=== PATIENT | male | born 1980 | race Caucasian/White ===

== ENCOUNTER 2018-02-18 09:32 | Emergency (ER) | payer SELFPAY ==
--- NOTE | 2018-02-18 09:45 | CPEKG ---
Heart Rate: 58 RR Interval: 1034 P-R Interval: 144 QRSD Interval: 94 QT Interval: 408 QTC Interval: 401 P Concrete: 34 QRS Concrete: 19 T Wave Concrete: 39 EKG Severity - NORMAL ECG - EKG Impression: SINUS RHYTHM Electronically Signed By: Kevin Almaguer 18-Feb-2018 10:45:46
[2018-02-18 09:51] VITALS: RESP 18; TEMP 98
[2018-02-18] MEDS ORDERED: IBUPROFEN 600 MG TAB PO ONE (09:54)
--- NOTE | 2018-02-18 10:17 | EDPHY ---
H & P Stated Complaint: c/o substernal Chest pain inc. over last month Time Seen by Provider: 02/18/18 09:34 HPI/ROS: Chief Complaint: Chest pain HPI: 37-year-old male states that he has been having left-sided chest pain for years but has been particularly worse over the last couple of months. He has noticed it is worse since he has been increasing his workouts. He has increased his lifting and he body pills daily. Pain is in the left upper chest indicating his left pectoralis muscle. It is constant. Is not taking any medicine for. Is not pleuritic. It is worse when he moves or stands up better. Better when he rests. It is not exertional. It is a constant 5/10. He has no shortness of breath or cough. No leg pain or swelling. No recent travel or periods of immobility. States his father who he did not know well of an [place] years ago. He is a smoker of cigars. He tried to go to a primary care physician today but they could not get him in so he came here for further evaluation. ROS: 10 point Review of Systems is negative except as noted in the HPI. PMH: None Social History: Smokes cigars, occasional alcohol, occasional marijuana Family History: Father had a "heart attack" Physical Exam: Gen: Awake, Alert, No Distress HEENT: Nose: no rhinorrhea Eyes: PERRLA, EOMI Mouth: Moist mucosa Neck: Supple, no JVD Chest: Patient has tenderness along the insertion of his left upper pectoralis muscle reproducing his presenting complaint, lungs clear to auscultation Heart: S1, S2 normal, no murmur Abd: Soft, non-tender, no guarding Back: no CVA tenderness, no midline tenderness Ext: no edema, non-tender Skin: no rash Neuro: CN II-XII intact, Sensation grossly intact, Strength 5/5 in bilateral upper and lower extremities - Personal History Current Tetanus Diphtheria and Acellular Pertussis (TDAP): Yes - Medical/Surgical History Hx Asthma: No Hx Chronic Respiratory Disease: No Hx Diabetes: No Hx Cardiac Disease: No Hx Renal Disease: No Hx Cirrhosis: No Hx Alcoholism: No Hx HIV/AIDS: No Hx Splenectomy or Spleen Trauma: No Other PMH: denies Constitutional: Initial Vital Signs Temperature (C) 36.6 C 02/18/18 09:42 Heart Rate 54 L 02/18/18 09:42 Respiratory Rate 18 02/18/18 09:42 Blood Pressure 164/99 H 02/18/18 09:42 O2 Sat (%) 92 02/18/18 09:42 O2 Delivery Mode Room Air Allergies/Adverse Reactions: No Known Allergies Allergy (Verified 11/27/13 21:02) Home Medications: Medication Instructions Recorded NK [No Known Home Meds] 02/18/18 Medical Decision Making - Diagnostics EKG Interpretation: ECG time 9:43 a.m., sinus rhythm with a rate of 58, normal axis, normal intervals, no acute ST or T-wave changes. Impression: Normal ECG. ED Course/Re-evaluation: Patient has clear chest wall pain. There is no exertional component. It is constant for months. Worsen with his heavy lifting exercises. He has a normal ECG. No indication for cardiac workup at this time. He is improved with anti- inflammatories. Will refer for outpatient follow-up. - Data Points Medications Given: Discontinued Medications Ibuprofen (Motrin) 600 mg PO EDNOW ONE Stop: 02/18/18 09:55 Last Admin: 02/18/18 10:09 Dose: 600 mg Departure - Departure Disposition: Home, Routine, Self-Care Clinical Impression: Chest wall pain Condition: Good Instructions: Chest Wall Pain (ED) Additional Instructions: Alternate acetaminophen (1000 mg) with ibuprofen (400 mg) every 4 hours as needed for pain. Follow up with primary care physician in about a week if symptoms are not improving. Referrals: Heladio Borrego MD [[facility] [place] Primary Care Provider] - As per Instructions
[2018-02-18 10:30] VITALS: BP 147/85; PULSE 75; O2SAT 97
== END 2018-02-18 10:26 | disposition home or self-care (01) ==
LOC: CED 09:32
DX: R07.89 Other chest pain (principal); F17.210 Nicotine dependence, cigarettes, uncomplicated